=== PATIENT | male | born 1995 | race Caucasian/White ===

== ENCOUNTER 2017-01-25 07:19 | Emergency (ER) | payer OTHER ==
[~2017-01-25] VITALS: Ht 165.1 cm; Wt 59.0 kg
[2017-01-25] MEDS ORDERED: ACET-2178 PO (07:34)
[2017-01-25] MEDS ORDERED: PENI500T PO (07:34)
[2017-01-25 08:43] VITALS: BP 126/85
[2017-01-25] MEDS ORDERED: IBUPROFEN 600MG TABLET PO ONE (08:45)
== END 2017-01-25 09:39 | disposition home or self-care (01) ==
LOC: ER 07:51
DX: K04.7 Periapical abscess without sinus (principal); F17.200 Nicotine dependence, unspecified, uncomplicated
CPT/HCPCS: 99283; Z7610